=== PATIENT | male | born 2000 | race African-American/Black ===

== ENCOUNTER 2020-11-11 09:47 | Emergency (ER) | payer SELFPAY ==
[~2020-11-11] VITALS: Ht 182.9 cm; Wt 66.0 kg
[2020-11-11 09:59] VITALS: BP 109/64
== END 2020-11-11 12:45 | disposition left against medical advice (07) ==
LOC: ER 09:47
DX: Z53.21 Procedure and treatment not carried out due to patient leaving prior to being seen by health care provider (principal)